=== PATIENT | male | born 1985 | race Caucasian/White ===

== ENCOUNTER 2024-01-14 08:54 | Emergency (ER) | payer SELFPAY ==
--- NOTE | ~2024-01-14 | XR_ITS ---
XR abdomen/kub 1V 01/14/2024 10:21 INDICATION: Lower abdomen pain TECHNIQUE: KUB COMPARISON: None FINDINGS: Bowel gas pattern is normal. There is no evidence of free air, mass, organomegaly, ascites or obstruction. No abnormal calculi are seen. The bones appear intact. IMPRESSION: 1: No acute abdominal abnormality identified. Reviewed, dictated and finalized at location B.
[2024-01-14 09:10] VITALS: BP 143/80; PULSE 94; RESP 16; TEMP 36.8; O2SAT 100
[2024-01-14 09:35] LABS: Basophils Percent Auto 0.5 % (0.2-1.2); Eosinophils Absolute Auto 0.1 K/mm3 (0-0.3); Eosinophils Percent Auto 2.2 % (0-4.4); Hematocrit 47.5 % (42.0-52.0); Hemoglobin 15.7 g/dL (14.0-18.0); Immature Granulocyte Absolute 0.01 K/mm3 (0.00-0.031); Immature Granulocyte Percent A 0.2 % (0-0.5); Lymphocytes Absolute Auto 1.08 K/mm3 (0.9-3.2); Lymphocytes Percent Auto 16.6 % (18.3-44.2); Mean Corpuscular HGB Conc 33.1 g/dl (32-36); Mean Corpuscular Hemoglobin 29.3 pg (26-34); Mean Corpuscular Volume 88.6 fl (80-100); Mean Platelet Volume 10.8 fl (7.4-10.4); Monocytes Absolute Auto 0.5 K/mm3 (0.1-0.6); Monocytes Percent Auto 7.8 % (2.6-8.5); Neutrophils Absolute Auto 4.7 K/mm3 (1.3-6.7); Neutrophils Percent Auto 72.7 % (45.5-73.1); Platelet Count Result 238 k/mm3 (150-375); Red Blood Count 5.36 M/mm3 (4.6-6.20); Red Cell Distribution Width 12.5 % (11.5-14.5); White Blood Count 6.5 K/mm3 (4.5-10.0)
[2024-01-14 09:39] LABS: Appearance Urine Clear (Clear); Bacteria Urine None Seen /hpf; Bilirubin Urine Negative (Negative); Blood Urine Negative (Negative); Color Urine Yellow (Yellow); Glucose Urine UA Negative (Negative); Ketones Urine Negative (Negative); Leukocyte Esterase Ur Negative LEU/UL (Negative); Nitrate Urine Negative (Negative); Protein Urine 1+ mg/dL (Negative); RBC Urine 0-2 /hpf (0-2); Specific Grav Ur 1.026 (1.001-1.035); Squamous Epithelial Cell Urine None Seen /hpf (Few); WBC Urine 0-5 /hpf (0-3)
[2024-01-14 09:44] LABS: Alanine Aminotransferase 16 U/L (6-50); Albumin Level 4.9 g/dL (3.5-5.1); Alkaline Phosphatase 70 U/L (38-126); Anion Gap 13 mmol/L (4-12); Aspartate Amino Transferase 26 U/L (17-59); Bilirubin,Total 0.7 mg/dL (0.2-1.3); Blood Urea Nitrogen 21 mg/dL (9-20); Carbon Dioxide 22 mmol/L (22-30); Chloride 105 mmol/L (98-107); Estimated CRCL calculation 66 ml/min; Estimated Glomerular Filt Rate > 60; Glucose 84 mg/dL (65-110); Lipase 48 U/L (23-300); Potassium 3.9 mmol/L (3.4-5.0); Sodium 140 mmol/L (137-145)
[2024-01-14 09:48] LABS: Add Urine Microscopic? YES
--- NOTE | 2024-01-14 10:02 | ED.ABDPAIN ---
HPI - Abdominal Pain General Chief Complaint: Abdominal Pain Stated Complaint: abdominal pain, rectal bleeding Time Seen by Provider: 01/14/24 09:30 History of Present Illness HPI narrative: 38-year-old male no medical problems presents to the emergency room for evaluation of lower abdominal discomfort and bright red blood on the toilet paper after having a bowel movement. Patient admits to a history of intermittent constipation. States he was sitting on the toilet for extended periods of time last couple of days. Reports the lower abdominal discomfort was relieved after having a bowel movement. No history of known hemorrhoids. Denies any nausea or vomiting or diarrhea. Denies fever. Related Data Home Medications Medication Instructions Recorded Confirmed albuterol sulfate 90 mcg/actuation 2 puff inhalation Q4H PRN 10/04/20 10/04/20 aerosol inhaler Allergies Allergy/AdvReac Type Severity Reaction Status Date / Time No Known Allergies Allergy Mild Verified 01/14/24 09:26 Review of Systems Review of Systems: ROS unremarkable except for noted in HPI PMFSH Past Medical History Medical History Acid reflux Anxiety Asthma Cervicalgia Constipation Encounter to establish care Rash and other nonspecific skin eruption Seasonal allergies Tobacco abuse Vitamin D deficiency Surgical History Surgical History H/O colonoscopy 1997 Family History Family History Father Alcohol abuse Sibling Alcohol abuse Mother Kidney disease Social History Social History Smoking packs per day: 1 Smoking cigarettes per day: 20.0 Smoking status: Current every day smoker Alcohol intake: never Substance use: never Exam Narrative: GENERAL: Well-appearing, well-nourished, no physical limitations, and in no acute distress. HEAD: Normocephalic, atraumatic. EYES: Conjunctivae normal, PERRLA and EOMI. CHEST: Clear to auscultation. No respiratory distress. No wheezes rales or rhonchi. HEART: Regular rate and rhythm. No murmur heard. Normal peripheral pulses. ABDOMEN: Soft, mild lower abdominal tenderness, nondistended, normal active bowel sounds. x2 small external hemorrhoids noted BACK: No CVA tenderness EXTREMITIES: Normal range of motion. No edema. No clubbing or cyanosis SKIN: Warm, dry, no rash. No noted wounds NEURO: No focal deficits. Alert and oriented x3. MAEW. CN's II-XI intact bilaterally, normal gait PSYCH: Cooperative. Normal mood and affect. Course Vital Signs Vital signs: Vital Signs Temperature 36.8 C 01/14/24 09:10 Pulse Rate 94 01/14/24 09:10 Respiratory Rate 16 01/14/24 09:10 Blood Pressure 143/80 H 01/14/24 09:10 Pulse Oximetry 100 01/14/24 09:10 Oxygen Delivery Room Air 01/14/24 09:10 Temperature 36.8 C 01/14/24 09:10 Pulse Rate 94 01/14/24 09:10 Respiratory Rate 16 01/14/24 09:10 Blood Pressure 143/80 H 01/14/24 09:10 Pulse Oximetry 100 01/14/24 09:10 Oxygen Delivery Room Air 01/14/24 09:10 MDM - Abdominal Pain MDM Narrative Medical decision making narrative: 38-year-old male presents emergency abdominal pain. Lab work was unremarkable. Patient states his abdominal pain was relieved after a bowel movement. Stated he noticed blood on his toilet paper. No external hemorrhoids were noted on exam, this is likely due to the cause of the blood on the toilet paper. A KUB shows normal gas patterns. Will discharge patient home with tucks pads for his hemorrhoids and encourage stool softener. Lab Data 01/14/24 09:26 01/14/24 09:26 Labs: Lab Results 01/14/24 Range/Units 09:26 WBC 6.5 (4.5-10.0) K/mm3 RBC 5.36 (4.6-6.20) M/mm3 Hgb 15.7 (14.0-18.0) g/dL Hct
[2024-01-14] MEDS: SODIUM CHLORIDE 0.9% IV 1,000 ML 999 ML IV CONT (10:27)
== END 2024-01-14 10:55 | disposition home or self-care (01) ==
PROVIDERS: Student in an Organized Health Care Education/Training Program; Emergency Provider Nurse Practitioner Family; PCP Nurse Practitioner Family
DX: K59.00 Constipation, unspecified (principal); K64.9 Unspecified hemorrhoids; F17.210 Nicotine dependence, cigarettes, uncomplicated
CPT/HCPCS: 36415; 74018; 80053; 81001; 83690; 85025; 99283; J7030